=== PATIENT | female | born 1955 | race Two or more races ===

== ENCOUNTER → 2016-04-30 | Outpatient (CLI) | payer BC, OTHER ==
[~2016-04-30] MED LIST: IOHEXOL 350 MG/ML 100ML IJ ONE
[2016-04-30 09:20] VITALS: BP 101/70
[2016-04-30 09:45] VITALS: BP 110/68
== END | disposition home or self-care (01) ==
LOC: Rad HDHVI 08:59
PROVIDERS: ATTEND Internal Medicine Cardiovascular Disease
DX: I25.10 Atherosclerotic heart disease of native coronary artery without angina pectoris (principal); J98.11 Atelectasis; I77.819 Aortic ectasia, unspecified site; M47.894 Other spondylosis, thoracic region; R16.1 Splenomegaly, not elsewhere classified; J98.4 Other disorders of lung; R91.1 Solitary pulmonary nodule
CPT/HCPCS: 71260; G0463; Q9967